=== PATIENT | male | born 2000 | race Caucasian/White ===

== ENCOUNTER 2023-09-20 08:55 | Emergency (ER) | payer OTHER ==
[~2023-09-20] VITALS: Ht 203.2 cm; Wt 96.2 kg
[2023-09-20] MEDS: PROPARACAINE 0.5% OPHTH SOL 15ML XX ONE (09:30)
[2023-09-20 09:41] LABS: BASO # 0.1 10^3/uL (0.0-0.2); EOS # 0.2 10^3/uL (0.0-0.5); EOS % 2.8 % (0.0-3.0); HEMOGLOBIN 17.1 g/dl (13.5-17.5); LYMPH # 1.9 10^3/uL (1.5-5.0); LYMPH % 28.2 % (24.0-44.0); MEAN CORPUSCULAR HEMOGLOBIN 30.9 pg (27.0-33.0); MEAN CORPUSCULAR HGB CONC 35.6 g/dl (32.0-36.5); MEAN CORPUSCULAR VOLUME 86.6 fl (80.0-96.0); MONO # 0.9 10^3/uL (0.0-0.8); MONO % 12.8 % (2.0-8.0); NEUTROPHILS # 3.7 10^3/uL (1.5-8.5); NEUTROPHILS % 55.1 % (36.0-66.0); PLATELET COUNT, AUTOMATED 204 10^3/uL (150-450); RED BLOOD COUNT 5.54 10^6/uL (4.30-6.10); WHITE BLOOD COUNT 6.7 10^3/uL (4.0-10.0)
[2023-09-20] MEDS ORDERED: ISOVUE-370 76% 100ML VIAL As Ordered ONE (09:58)
[2023-09-20 09:59] LABS: INR 0.91; PARTIAL THROMBOPLASTIN TIME 31.9 SECONDS (24.8-34.2)
[2023-09-20 10:28] LABS: BLOOD UREA NITROGEN 12 MG/DL (9-23); CALCIUM LEVEL 9.6 MG/DL (8.5-10.1); CARBON DIOXIDE LEVEL 28 MMOL/L (20-31); CHLORIDE LEVEL 105 MMOL/L (98-107); CREATININE FOR GFR 0.97 MG/DL (0.70-1.30); GLOMERULAR FILTRATION RATE > 60.0 (>60); GLUCOSE, FASTING 94 MG/DL (60-100); POTASSIUM SERUM 3.9 MMOL/L (3.5-5.1); SODIUM LEVEL 140 MMOL/L (136-145)
[2023-09-20] MEDS ORDERED: HOME MED LIST COMPLETE! XX SCH ×2 (10:55)
[2023-09-20 13:20] VITALS: BP 145/85; TEMP 99.9; O2SAT 97
== END 2023-09-20 13:39 | disposition home or self-care (01) ==
LOC: M ED 08:55
DX: H53.142 Visual discomfort, left eye (principal); I65.23 Occlusion and stenosis of bilateral carotid arteries
CPT/HCPCS: 36415; 70450; 70496; 70498; 70544; 70551; 80047; 80048; 85025; 85610; 85730; 93005; 93041; 94760; 99285; Q9967